=== PATIENT | male | born 1955 | race Caucasian/White ===

== ENCOUNTER 2023-08-06 14:03 | Emergency (ER) | payer MEDICARE, OTHER, SELFPAY ==
--- NOTE | 2023-08-06 14:22 | ED.MALEGU ---
HPI - Male Genitourinary General Chief complaint: Urogenital-Male Stated complaint: Male Urogenital Time Seen by Provider: 08/06/23 14:25 Source: patient, RN notes reviewed and old records reviewed Mode of arrival: ambulatory Limitations: no limitations History of Present Illness HPI Narrative: 68-year-old male presents to the [facility] with complaints of incontinence. Patient is concerned he might have a UTI. States he has never had issues with incontinence. Denies any abdominal pain. No new back pain. Denies any burning or urgency or frequency of urination. Denies chance of STD. Denies saddle anesthesia, low back pain, midline tenderness or took leg numbness tingling. Related Data Home Medications Medication Instructions Recorded Confirmed carvedilol 3.125 mg tablet 3.125 mg PO DAILY 08/06/23 08/06/23 ezetimibe 10 mg tablet 10 mg PO DAILY 08/06/23 08/06/23 gabapentin 300 mg capsule 300 mg PO BID 08/06/23 08/06/23 glimepiride 4 mg tablet 4 mg PO BID 08/06/23 08/06/23 hydralazine 100 mg tablet 100 mg PO DAILY 08/06/23 08/06/23 losartan 100 mg tablet 100 mg PO DAILY 08/06/23 08/06/23 metformin 1,000 mg tablet 1,000 mg PO BID 08/06/23 08/06/23 pioglitazone 15 mg tablet 15 mg PO DAILY 08/06/23 08/06/23 spironolactone 50 mg tablet 50 mg PO DAILY 08/06/23 08/06/23 tamsulosin 0.4 mg capsule 0.4 mg PO BID 08/06/23 08/06/23 Allergies Allergy/AdvReac Type Severity Reaction Status Date / Time hydrocodone AdvReac Mild Itching Verified 08/06/23 14:39 Review of Systems Review of Systems: All systems reviewed & are unremarkable except as noted in HPI and below Constitutional: Constitutional: Reports no additional constitutional complaints Eyes: Eyes: Reports no additional eye complaints ENT: Reports system reviewed and no additional complaints, except as documented Cardiovascular: Cardiovascular: Reports no additional cardiovascular complaints, Denies chest pain and Denies dyspnea Respiratory: Respiratory: Reports no additional respiratory complaints, Denies chest congestion, Denies cough and Denies dyspnea Gastrointestinal: Gastrointestinal: Reports no additional gastrointestinal complaints, Denies abdominal pain, Denies nausea and Denies vomiting Genitourinary: Genitourinary: Reports as per HPI Musculoskeletal: Musculoskeletal: Reports no additional musculoskeletal complaints Integumentary/Breasts: Skin/Breast: Reports system reviewed and no additional complaints, except as docu Neurologic: Reports system reviewed and no additional complaints, except as documented Psychiatric: Psychiatric: Reports no additional psychiatric complaints Allergic/Immunologic: Allergic/Immunologic: Reports no additional allergic/immunologic complaints [facility] Past Medical History Medical History (Updated 08/06/23 @ 20:03 by Karmen Mckeon, ODELL) Diabetes Enlarged prostate History of high blood pressure Comments At the time of my signature, I reviewed and agree with the nursing past medical, surgical, social, and family history. There is no relevant family history pertinent to the patient complaint. Exam Const: General: cooperative, healthy appearing, comfortable, no acute distress, well developed, alert and well nourished Nutritional Appearance: well nourished Orientation/consciousness: patient oriented x3 Limitations: no limitations HENMT: Head: normal to inspection Ears: hearing grossly normal bilaterally and external ears normal Face/Nose/Sinus: Normal external nose present, Normal nares present, Normal nasal mucous membranes and turbinates present, normal facial exam and face symmetric Face and sinus: normal facial exam and face symmetric Mouth: Yes lip normal and Yes moist mucous membranes Eyes: General: appearance normal, both eyes and all related structures Alignment and Position: alignment normal Periorbital: periorbital findings normal Pupils: Equal, round and reactive pupils present EOM: EOMs intact bilaterally Neck:
[2023-08-06 14:23] VITALS: BP 129/78; PULSE 109; RESP 16; TEMP 37.2; O2SAT 95
[2023-08-06 14:35] LABS: Glucose Point of Care 221 mg/dl (65-105)
== END 2023-08-06 14:42 | disposition home or self-care (01) ==
PROVIDERS: Emergency Provider Nurse Practitioner
DX: R32 Unspecified urinary incontinence (principal); E11.9 Type 2 diabetes mellitus without complications; N40.0 Benign prostatic hyperplasia without lower urinary tract symptoms; I10 Essential (primary) hypertension; Z79.84 Long term (current) use of oral hypoglycemic drugs
CPT/HCPCS: 81003; 82948; 99202; G0463